=== PATIENT | female | born 1985 | race Caucasian/White ===

== ENCOUNTER 2017-04-15 22:44 | Emergency (ER) | payer SELFPAY ==
[2017-04-16] MEDS ORDERED: FENTANYL CITRATE INJ/PF 100 MCG/2 ML AMPUL IV ONE ×2 (02:06→02:58)
[2017-04-16 02:08] LABS: ABSOLUTE BASOPHILS # (AUTO) 0.1 10^3/uL (0.0-0.2); ABSOLUTE EOSINOPHILS # (AUTO) 0.3 10^3/uL (0.0-0.6); ABSOLUTE LYMPHOCYTES (AUTO) 2.1 10^3/uL (0.5-4.7); ABSOLUTE MONOCYTES (AUTO) 0.5 10^3/uL (0.1-1.4); ABSOLUTE NEUT (AUTO) 5.3 10^3/uL (1.7-8.2); BASOPHILS % (AUTO) 1.2 % (0-2); EOSINOPHILS % (AUTO) 3.8 % (0-6); HEMATOCRIT 39.4 % (36.0-47.0); HEMOGLOBIN 13.4 g/dL (12.0-15.5); LYMPHOCYTES % (AUTO) 25.5 % (13-45); MEAN CORPUSCULAR HEMOGLOBIN 31.4 pg (27.0-33.4); MEAN CORPUSCULAR VOLUME 92 fl (80-97); MONOCYTES % (AUTO) 6.5 % (3-13); PLATELET COUNT 279 10^3/uL (150-450); RED BLOOD COUNT 4.28 10^6/uL (3.72-5.28); RED CELL DISTRIBUTION WIDTH 12.5 % (11.5-14.0); TOTAL CELLS COUNTED % (AUTO) 100 %; WHITE BLOOD COUNT 8.4 10^3/uL (4.0-10.5)
--- NOTE | 2017-04-16 03:23 | RADIOLOGY REPORT (SQ) ---
EXAM DESCRIPTION: U/S OB TRANSVAG W/DOPPLER CLINICAL HISTORY: 31 years Female, bleeding in COMPARISON: None. TECHNIQUE: Complete first trimester obstetrical ultrasound with transvaginal imaging. FINDINGS: The uterus measures 12.1 x 8.0 x 5.4 cm. 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 If this represents a gestational sac it measures 4.73 cm which would be compatible with an estimated gestational age of 10 weeks, 2 days. No pole or yolk sac identified at this time. No myometrial abnormalities. Cervical length of 4.6 cm and closed. The left ovary is not identified. Small amount of free pelvic fluid. The right ovary measures 2.8 x 1.9 x 2.0 cm. Limited color spectral Doppler images demonstrate flow within the right ovary. IMPRESSION: 1. There is a cystic structure in the endometrium. If this represents a gestational sac the estimated gestational age by mean sac diameter is 10 weeks, 2 days. No pole or yolk sac identified. These findings are concerning for anembryonic . Ectopic cannot be excluded. Close continued clinical, laboratory, and sonographic follow-up recommended. 2. 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 3. The left ovary is not identified on this study.
[2017-04-16 04:06] LABS: APPEARANCE,URINE TURBID; BILIRUBIN,URINE NEGATIVE (NEGATIVE); COLOR,URINE RED; GLUCOSE, URINE NEGATIVE (NEGATIVE); KETONES,URINE NEGATIVE (NEGATIVE); LEUKOCYTE ESTERASE,URINE NEGATIVE (NEGATIVE); NITRITE,URINE NEGATIVE (NEGATIVE); PROTEIN,URINE 100 mg/dL (NEGATIVE); URINE SPECIFIC GRAVITY 1.015; UROBILINOGEN,URINE NEGATIVE mg/dL (<2.0)
[2017-04-16] MEDS ORDERED: HYDROCODONE/ACETAMINOPHEN 5-325 MG (6 TAB/ER DISP) PO PRN (05:19)
--- NOTE | 2017-04-16 05:19 | ER Document Report ---
ED General - General Chief Complaint: Vag Bleeding, +preg <12wks Stated Complaint: ABDOMINAL PAIN Time Seen by Provider: 04/16/17 01:54 Notes: Patient is a 31-year-old female presents with complaint of vaginal bleeding and . She is approximately 9-10 weeks . She said she had a ultrasound approximately 2 weeks ago where they cannot see an IUP. Tonight she started having bleeding. She says she initially had some pressure and passed several clots and some blood. She continued to pass blood since then. No dizziness. No passing out. No difficulty breathing. This is her second . She had a previous miscarriage. She does have previous history of PID. TRAVEL OUTSIDE OF THE [place] IN LAST 30 DAYS: No - Related Data Allergies/Adverse Reactions: No Known Allergies Allergy (Verified 04/16/17 01:43) Past Medical History - Social History Smoking Status: Never Smoker Chew tobacco use (# tins/day): No Frequency of alcohol use: None Drug Abuse: None Family History: Reviewed & Not Pertinent Patient has suicidal ideation: No Patient has homicidal ideation: No Renal/ Medical History: Denies: Hx Peritoneal Dialysis Review of Systems - Review of Systems Notes: My Normal Review Basic REVIEW OF SYSTEMS: CONSTITUTIONAL : Denies fever, chills, or sweats. Denies recent illness. RESPIRATORY: Denies cough, cold, or chest congestion. Denies shortness of breath, difficulty breathing, or wheezing. GASTROINTESTINAL: Suprapubic non lateralizing abdominal pain. Denies nausea, vomiting, or diarrhea. Denies constipation. Last BM: GENITOURINARY: Denies difficulty urinating, painful urination, burning, frequency, or blood in urine. FEMALE GENITOURINARY: Vaginal bleeding and . MUSCULOSKELETAL: Denies neck or back pain or joint pain or swelling. SKIN: Denies rash or skin lesions. HEMATOLOGIC : Denies easy bruising or bleeding. NEUROLOGICAL: Denies altered mental status or loss of consciousness. Denies headache. Denies weakness or paralysis or loss of use of either side. Denies problems with gait or speech. Denies sensory or motor loss. ALL OTHER SYSTEMS REVIEWED AND NEGATIVE. Physical Exam - Vital signs Vitals: Temp Pulse Resp BP Pulse Ox 97.4 F 74 16 110/77 100 04/15/17 23:45 04/15/17 23:45 04/15/17 23:45 04/15/17 23:45 04/15/17 23:45 - Notes Notes: General Appearance: Well nourished, alert, cooperative, no acute distress, moderate obvious discomfort. Vitals: reviewed, See vital signs table. Head: no swelling or tenderness to the head Eyes: PERRL, EOMI, Conjuctiva clear Mouth: No decreasd moisture Lungs: No wheezing, No rales, No rhonci, No accessory muscle use, good air exchange bilaterally. Heart: Normal rate, Regular rythm, No murmur, no rub Abdomen: Normal BS, soft, No rigidity, mild suprapubic abdominal tenderness palpation, No guarding, no rebound, Extremities: strength 5/5 in all extremities, good pulses in all extremities, no swelling or tenderness in the extremities, no edema. Skin: warm, dry, appropriate color, no rash Neuro: speech clear, oriented x 3, normal affect, responds appropriately to questions. Course - Re-evaluation Re-evalutation: 04/16/17 07:02 Patient's ultrasound shows an to gestational sac in her quant HCG is just under 1200. This is consistent with likely miscarriage. I informed patient that her medications pregnancies can have an empty gestational sac and still have an ectopic . Informed her this is extremely rare I do not think that this was going on with her specialist and she does not have any lateralizing pain; however, informed her she still needs return to the ER in 1-2 days for reevaluation repeat of her hCG level to make sure it is downtrending a properly. I will also give her number to the [employer] doctor scheduler conveyor for follow- up. Encouraged her return to ER immediately if she has severe pain, heavy bleeding, or she feels is worsening. 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 Dictation of this chart was performed using voice recognition software; therefore, there may be some unintended grammatical errors. - Vital Signs Vital signs: Temp Pulse Resp BP Pulse Ox 97.4 F 78 20 119/55 L 98 04/15/17 23:45 04/16/17 05:39 04/16/17 05:39 04/16/17 05:39 04/16/17 05:39 - Laboratory Result Diagrams: 04/16/17 02:00 Laboratory results interpreted by me: 04/16/17 04/16/17 02:00 02:25 Beta HCG, Quant 1181.10 H Urine Protein 100 H Urine Blood LARGE H Discharge - Discharge Clinical Impression: Incomplete miscarriage Condition: Good Disposition: HOME, SELF-CARE Instructions: Oral Narcotic Medication ([facility]) Additional Instructions: Your ultrasound shows a gestational sac without development of a fetus. This will ultimately lead to a miscarriage. The bleeding you are having now is likely the beginning of the miscarriage. As discussed with you, these findings do not 100% rule out an ectopic but they make it much less likely. We therefore want you to return to the ER in 24- 48 hours for reevaluation and recheck of your hormone level. Please return to the ER immediately if you have intractable pain, heavy bleeding, difficulty breathing, light headedness, or feel that you are worsening. Prescriptions: Hydrocodone/Acetaminophen [Pinon 5-325 mg Tablet] 1 tab PO Q4 PRN #16 tablet PRN Reason: For Breakthrough Pain Referrals: SVETLANA DILLON MD [ACTIVE STAFF] - Follow up in 3-5 days
[2017-04-16 05:39] VITALS: BP 119/55
== END 2017-04-16 05:38 | disposition home or self-care (01) ==
LOC: ER 22:44
DX: O03.4 Incomplete spontaneous abortion without complication (principal); Z3A.10 10 weeks gestation of pregnancy
CPT/HCPCS: 96376; 99284; 96374; 86900; 86901; 36415; 84702; 85025; 81001; 76817; 93976; J3010